=== PATIENT | male | born 1935 | race Caucasian/White ===

== ENCOUNTER → 2019-03-31 08:46 | Outpatient (BNVA) | payer OTHER, SELFPAY | PROVIDERS: PCP General Practice; Referring Provider General Practice; Visit Provider Orthopaedic Surgery | DX: Z47.1 Aftercare following joint replacement surgery (principal); Z96.641 Presence of right artificial hip joint | CPT/HCPCS: 99212; 99213 ==

== ENCOUNTER 2019-05-26 14:09 | Outpatient (CLI) | payer OTHER, SELFPAY ==
--- NOTE | 2019-05-26 10:54 | DI.RAD_ITS ---
SYMPTOMS/DIAGNOSIS: LEFT HIP PAIN LEFT HIP AND PELVIS: Two views. Comparison is 03/31/18. There are mild degenerative changes of the left hip. There is again seen a right total hip replacement, which appears stable. The bones appear intact. Extensive vascular calcifications are present.
== END 2019-05-26 14:29 ==
PROVIDERS: Referring Provider General Practice; Visit Provider Orthopaedic Surgery
DX: M25.552 Pain in left hip (principal); M16.12 Unilateral primary osteoarthritis, left hip; Z96.641 Presence of right artificial hip joint; M70.62 Trochanteric bursitis, left hip
CPT/HCPCS: 99213; 73502

== ENCOUNTER 2020-08-14 19:09 | Outpatient (REF) | payer OTHER, SELFPAY ==
[2020-08-14 19:10] LABS: CREATININE 0.92 mg/dL (0.70-1.30)
== END 2020-08-14 19:29 ==
LOC: NCHCN 19:09
PROVIDERS: PCP Physician Assistant; Visit Provider Family Medicine
DX: I10 Essential (primary) hypertension (principal)
CPT/HCPCS: 82565

== ENCOUNTER 2022-01-15 18:35 | Outpatient (REF) | payer OTHER, SELFPAY ==
[2022-01-15 19:51] LABS: CREATININE 0.8 mg/dL (0.70-1.30)
== END 2022-01-15 18:36 | disposition home or self-care (01) ==
LOC: NCHCN 18:35
PROVIDERS: PCP Physician Assistant; Visit Provider Family Medicine
DX: U07.1 COVID-19 (principal)
CPT/HCPCS: 82565

== ENCOUNTER 2022-03-26 13:10 | Outpatient (REF) | payer MEDICARE, SELFPAY ==
[2022-03-26 15:45] LABS: Anion Gap 7.9 mmol/L (3-11); BUN 15 mg/dL (7-18); CO2 26.1 mmol/L (21.0-32.0); CREATININE 0.9 mg/dL (0.70-1.30); Calcium 8.8 mg/dL (8.5-10.1); Chloride 107 mmol/L (98-107); Glucose 108 mg/dL (74-106); Potassium 4.2 mmol/L (3.5-5.1); Sodium 141 mmol/L (136-145)
== END 2022-03-26 13:11 | disposition home or self-care (01) ==
LOC: NCHCN 13:10
PROVIDERS: PCP Physician Assistant; Visit Provider Family Medicine
DX: I10 Essential (primary) hypertension (principal)
CPT/HCPCS: 80048

== ENCOUNTER 2022-10-13 19:09 | Outpatient (REF) | payer MEDICARE, SELFPAY ==
[2022-10-13 19:30] LABS: Abs Immature Grans 0.04 10^3/uL (0.0-0.06); Absolute Eosinophil Count 0.09 10^3/uL (0.0-0.7); Absolute Lymphocyte Count 1.35 10^3/uL (1.2-3.4); Absolute Monocyte Count 0.83 10^3/uL (0.1-0.8); Absolute Neutrophil Count 7.82 10^3/uL (1.2-6.7); Eosinophils % 0.9; HCT 42.5 % (40.0-50.0); HGB 14.3 g/dL (13.5-17.5); Immature Grans % 0.4; Lymphocytes % 13.2; MCH 30.6 pg (27.0-33.0); MCHC 33.6 % (32.0-36.0); MCV 91 fL (80-95); MPV 12.1 fL (8.0-11.0); Monocytes % 8.1; Neutrophils % 76.4; Platelet Count 254 10^3/uL (130-400); RBC 4.68 10^6/uL (4.36-5.78); RDW 14.2 % (11.8-14.1); RDW-SD 47.2 fL; WBC 10.23 10^3/uL (4.4-10.8)
[2022-10-13 19:45] LABS: Hemoglobin A1C 5.5 % (<5.7)
[2022-10-13 19:55] LABS: ALT 18 U/L (16-63); AST 16 U/L (15-37); Albumin 3.8 g/dL (3.4-5.0); Alkaline Phosphatase 76 U/L (46-116); Anion Gap 8.3 mmol/L (3-11); BUN 18 mg/dL (7-18); Bilirubin, Total 0.5 mg/dL (0.2-1.0); CO2 27.7 mmol/L (21.0-32.0); Calcium 9.6 mg/dL (8.5-10.1); Chloride 105 mmol/L (98-107); Estimated GFR 73.76 (mL/min/1.73m2); Glucose 108 mg/dL (74-106); Potassium 4.5 mmol/L (3.5-5.1); Sodium 141 mmol/L (136-145); TSH (W/Ref FT4) 1.79 uIU/mL (0.36-3.74)
== END 2022-10-13 19:10 | disposition home or self-care (01) ==
LOC: NCHCN 19:09
PROVIDERS: PCP Physician Assistant; Visit Provider Family Medicine
DX: R63.4 Abnormal weight loss (principal)
CPT/HCPCS: 80053; 83036; 84443; 85025

== ENCOUNTER → 2022-10-14 12:22 | Outpatient (CLI) | payer MEDICARE, SELFPAY ==
--- NOTE | 2022-10-14 11:33 | DI.RAD_ITS ---
Exam(s) XR LUMBAR SPINE COMPLETE EXAM: XR LUMBAR SPINE COMPLETE CLINICAL HISTORY: LOW BACK PAIN M54.50. TECHNIQUE: 2D digital imaging was performed of the lumbar spine. Five images were obtained. AP, la teral, right oblique, left oblique and L5-S1 spot views were obtained. COMPARISON: No exams were available for comparison FINDINGS: BONES: No fracture or destructive lesion. Endplate osteophytes are seen throughout the lumbar spine. No facet hypertrophy identified. Part of a right total hip replacement are noted. DISKS: There is disc space narrowing at L1-L2 through L3-L4. Vacuum discs are seen at multiple level s of the lumbar spine. ALIGNMENT: There is a mild right convex thoracolumbar scoliosis. No spondylolysis or spondylolisthes is. SOFT TISSUE: Atherosclerosis is present. IMPRESSION: Moderate lumbar spondylosis. DATA REPOSITORY: RADIATION DOSE DELIVERED:
== END ==
PROVIDERS: PCP Physician Assistant; Visit Provider Family Medicine
DX: M47.816 Spondylosis without myelopathy or radiculopathy, lumbar region (principal)
CPT/HCPCS: 72110

== ENCOUNTER 2023-03-05 17:21 | Outpatient (REF) | payer MEDICARE, SELFPAY ==
[2023-03-05 18:39] LABS: Bilirubin Negative (Negative); Blood Negative (Negative); Clarity Clear (Clear); Glucose Negative (Negative); Ketones Negative (Negative); Leukocyte Esterase Negative (Negative); Nitrite Negative (Negative); Specific Gravity 1.015 (1.005-1.025); Urobilinogen 0.2 mg/dL (Up to 0.2); pH 6.5 (5-8)
[2023-03-05 20:10] LABS: ALT 21 U/L (16-63); AST 15 U/L (15-37); Albumin 3.6 g/dL (3.4-5.0); Alkaline Phosphatase 81 U/L (46-116); Anion Gap 9.7 mmol/L (3-11); BUN 11 mg/dL (7-18); Bilirubin, Total 0.4 mg/dL (0.2-1.0); CO2 26.3 mmol/L (21.0-32.0); Calcium 9.1 mg/dL (8.5-10.1); Chloride 106 mmol/L (98-107); Estimated GFR 73.76 (mL/min/1.73m2); Glucose 103 mg/dL (74-106); Potassium 4.3 mmol/L (3.5-5.1); Sodium 142 mmol/L (136-145); TSH (W/Ref FT4) 1.73 uIU/mL (0.36-3.74)
== END 2023-03-05 17:22 | disposition home or self-care (01) ==
LOC: NCHCN 17:21
PROVIDERS: PCP Physician Assistant; Visit Provider Family Medicine
DX: I10 Essential (primary) hypertension (principal)
CPT/HCPCS: 80053; 81003; 84443

== ENCOUNTER → 2023-10-01 13:16 | Outpatient (CLI) | payer MEDICARE, SELFPAY ==
--- NOTE | 2023-10-01 | DI.RAD_ITS ---
Exam(s) XR HIP LT COMPLETE AP PELVIS EXAM: XR HIP LT COMPLETE AP PELVIS CLINICAL HISTORY: left hip pain M25.552. TECHNIQUE: 2D digital imaging was performed. Two views. COMPARISON: CR XR hip LT complete AP pelvis from 05/26/2019 FINDINGS: BONES: No acute fracture is present. No bony destructive lesion is seen. Severe degenerative change s noted in the lower lumbar spine. JOINTS: No dislocation present. No change in right hip prosthesis. Left hip joint space is maintai amarilis. There is mild I acetabular spurring. SI joints and pubic symphysis are unremarkable. SOFT TISSUE: Vascular calcifications. IMPRESSION: Mild degenerative changes of the left hip. No change in right hip prosthesis. DATA REPOSITORY: RADIATION DOSE DELIVERED:
== END ==
PROVIDERS: PCP Physician Assistant; Visit Provider Family Medicine
DX: M16.12 Unilateral primary osteoarthritis, left hip (principal); Z96.641 Presence of right artificial hip joint
CPT/HCPCS: 73502

== ENCOUNTER → 2023-11-26 11:16 | Outpatient (BNVA) | payer MEDICARE, SELFPAY | PROVIDERS: PCP Family Medicine; Referring Provider Family Medicine | DX: M16.12 Unilateral primary osteoarthritis, left hip (principal) | CPT/HCPCS: 20611; 99203; J1040 ==

== ENCOUNTER 2024-01-19 10:41 | Emergency (ER) | payer MEDICARE, SELFPAY ==
[2024-01-19] VITALS (76 sets, daily range): BP systolic 76–188; BP diastolic 24–153; PULSE 50–97; RESP 18; TEMP 35.4–36.4; O2SAT 87–100
--- NOTE | 2024-01-19 10:15 | DI.RAD_ITS ---
Exam(s) XR PORTABLE CHEST AP EXAM: XR PORTABLE CHEST AP CLINICAL HISTORY: cardiac arrest, ?pneumothorax TECHNIQUE: 2D digital imaging was performed of the chest. One image was obtained. An AP view was ob tained. COMPARISON: No exams were available for comparison FINDINGS: MEDIASTINUM: Normal. HEART: Normal. PULMONARY VASCULATURE: Normal. There is a tortuous thoracic aorta. LUNGS: There are bilateral ground-glass opacities present. PLEURAL SPACE: No pleural effusion or pneumothorax. The patient's known tiny left apical pneumothorax is not visualized on this examination. BONE:Within normal limits for the patient's age. The patient's known anterior rib fractures are not w ell visualized on this examination. OTHER FINDINGS:Normal. IMPRESSION: 1. Bilateral diffuse ground-glass opacities. Differential considerations include pneumonia, contusio ns, hemorrhage or edema. 2. Please refer to the patient's CT scan of the chest, abdomen and pelvis for complete details. DATA REPOSITORY: RADIATION DOSE DELIVERED:
--- NOTE | 2024-01-19 10:30 | DI.CT_ITS ---
Exam(s) CT HEAD WO EXAM: CT HEAD WO CLINICAL HISTORY: post cardiac arrest, abrasion to superior occipita. TECHNIQUE: Imaging Protocol: Axial computed tomography images with coronal and sagittal reformatted images were created and reviewed COMPARISON: CT HEAD AND CSPINE W/O CONTRAST from 02/24/2014 FINDINGS: There is patient motion artifact. Ventricles and Extra axial spaces: Normal in size and morphology for the patient's age. Hemorrhage: None. Cerebral parenchyma: There are areas of decreased attenuation in the white matter consistent with sma ll vessel ischemic disease. There is no mass effect or effacement of the sulci. There are subtle ar eas of decreased attenuation in the high right posterior parietal lobe which may represent old infarc t. There is no effacement of the sulci. Midline shift: None. Brainstem/Cerebellum: Normal. Calvarium: Normal. Visualized Paranasal sinuses/Mastoids: Clear. Soft Tissues: Unremarkable. IMPRESSION: No acute intracranial process. RADIATION DOSE DELIVERED: Total DLP DATA REPOSITORY: All CT scans at this facility are submitted to the National Radiology Data Registry (NRDR) Dose Index Registry (DIR) with the [employer] (ACR). RADIATION OPTIMIZATION: All CT scans at this facility use at least one of these dose optimization te chniques: automated exposure control; mA and/or kV adjustment per patient size (includes targeted exa ms where dose is matched to clinical indication); or iterative reconstruction.
--- NOTE | 2024-01-19 10:30 | DI.CT_ITS ---
Exam(s) CT THORAX ABD/PEL CTA EXAM: CT THORAX ABD/PEL CTA CLINICAL HISTORY: post cardiac arrest, wide mediastinum on cxr. TECHNIQUE: Imaging Protocol: Axial CT angiography was performed with multi-slice acquisition and m ulti-planar and/or 3D reconstructions. CONTRAST MATERIAL: Intravenous: Omnipaque 350 contrast volume:100 mL Oral: No COMPARISON: CT HEAD AND CSPINE W/O CONTRAST from 02/24/2014 FINDINGS: The examination is limited due to patient motion artifact. CHEST: Tracheobronchial tree: Patent where visualized. Pulmonary parenchyma: There are multifocal bilateral ground-glass opacities. No architectural distor tion. Pulmonary Arteries: No evidence of filling defect to suggest pulmonary emboli. Mediastinum and Elissa: No dominant adenopathy or fluid collection. The esophagus is unremarkable. The re is a small hiatal hernia. Visualized thyroid: There is a 9 mm left thyroid nodule. No follow-up is recommended. Pleura: The looks to be a small right anterior pneumothorax. (Series 6, image 366). No pleural effu augustine. No left pneumothorax. Heart: Cardiomegaly. Coronary artery calcification and/or stents. No pericardial effusion. Aorta: Thoracic aorta non-dilated. There is motion artifact seen at the base of the ascending thoraci c aorta. There is no evidence of dissection. Mild atherosclerosis of the thoracic aorta is noted. Soft Tissues: Unremarkable. Bones: Within normal limits for the patient's age.There are minimally displaced fractures involving t he anterior aspect of the right 3rd through 6th ribs. There are nondisplaced fractures of the anteri or aspects of the right 7th through 9th ribs. There are also mildly displaced left 3rd through 8th r ib fractures anteriorly. The fractures occur near the costochondral junctions. ABDOMEN AND PELVIS: Abdomen: Celiac axis/mesenteric arteries: No evidence of occlusion or significant stenosis. Renal Arteries: No evidence of occlusion or significant stenosis. Mild atherosclerotic calcification in the proximal right renal artery causing mild stenosis. Aorta: No evidence of occlusion or significant stenosis. No aneurysm or dissection. Atheroscleroti c calcification is present. Pelvis: Iliac Arteries: No evidence of occlusion or significant stenosis. Atherosclerotic calcification is present. No significant stenosis. Common Femoral Arteries: No evidence of occlusion or significant stenosis. Atherosclerotic calcific ation is present no significant stenosis. ABDOMEN: Liver: Normal density. No measurable mass. Gallbladder and Biliary Tract: No radiodense calculus or dilation. Pancreas: Normal density, no abnormal calcifications or inflammatory process. Spleen: Normal. Adrenals: No masses seen. Kidneys: Normal size, contour and axis. No radiodense stones or obstructive uropathy. No masses seen. Bowel: There is diverticulosis of the colon without evidence of acute diverticulitis. There is no ev idence of bowel obstruction or bowel wall thickening. There is no evidence of pneumatosis. No evide nce of appendicitis. Peritoneal Cavity: There is a soft tissue mass in the central abdomen which lies inferior to the panc reas but may be contiguous with the pancreas body. It measures 2.2 AP by 9.1 transverse by 7.5 crani ocaudad cm. No free air. Lymph Nodes: Within normal limits. Bones: Within normal limits for the patient's age. The patient has a right total hip replacement. Soft Tissues: There is a fat containing left inguinal hernia. PELVIS: Bladder: Symmetric distention, no gross wall thickening. Reproductive Organs: Prostate gland is mildly enlarged. Lymph Nodes: Within normal limits. Bones: Within normal limits for the patient's age. IMPRESSION: 1. No evidence of aortic dissection or aneurysm. 2. Multiple bilateral ground-glass opacities in the lungs. Differential considerations include contu sions, pulmonary edema, pulmonary hemorrhage, pneumonia. Please correlate clinically. 3. Multiple anterior bilateral rib fractures. No evidence of a flail chest. 4. Tiny right anterior pneumothorax. 5. 2.2 x 9.1 x 7.5 cm mass in the mid abdomen. It may be contiguous with the pancreatic body. Diffe rential considerations include pancreatic neoplasm, adenopathy/lymphoma, metastatic disease or possib le hematoma. 6. No acute abdomen or pelvic process. RADIATION DOSE DELIVERED: Total DLP DATA REPOSITORY: All CT scans at this facility are submitted to the National Radiology Data Registry (NRDR) Dose Index Registry (DIR) with the [employer] (ACR). RADIATION OPTIMIZATION: All CT scans at this facility use at least one of these dose optimization te chniques: automated exposure control; mA and/or kV adjustment per patient size (includes targeted exa ms where dose is matched to clinical indication); or iterative reconstruction.
--- NOTE | 2024-01-19 10:30 | RT.EKG_ITS ---
APPROVED REPORT Exam: Resting ECG Reason for Exam: cardiac arrest in field Patient Location: E HR:90 bpm ECG Measurements Heart Rate 90 AXIS NC 264 P 78 QRSd 108 QRS -24 QT 397 T 21 QTc 484 Conclusion Sinus rhythm...normal P axis, V-rate 60- 99 Ventricular premature complex...V complex w/ short R-R interval Prolonged NC interval...NC >220, V-rate 50- 90 Probable LVH with secondary repol abnrm...multiple LVH criteria Sinus rhythm, consider biphasic T waves lead III ST depressions V4 V5 V6, PVC
[2024-01-19 10:37] LABS: BE (Venous) -9 mmol/L (-2-3); HCO3 (Venous) 18 mmol/L (23-28); O2 Sat (Venous) 92 %; TCO2 (Venous) 16 mmol/L (24-29); pCO2 (Venous) 39 mmHg (41-51); pH (Venous) 7.27 (7.31-7.41); pO2 (Venous) 70 mmHg
[2024-01-19 10:39] LABS: Abs Immature Grans 0.28 10^3/uL (0.0-0.06); Absolute Basophil Count 0.14 10^3/uL (0.0-0.2); Absolute Eosinophil Count 0.17 10^3/uL (0.0-0.7); Absolute Monocyte Count 0.84 10^3/uL (0.1-0.8); Basophils % 1.3; Eosinophils % 1.6; HCT 44.2 % (40.0-50.0); HGB 14.6 g/dL (13.5-17.5); Immature Grans % 2.6; Lymphocytes % 26.8; MCH 29.9 pg (27.0-33.0); MCV 91 fL (80-95); MPV 12.1 fL (8.0-11.0); Monocytes % 7.8; Neutrophils % 59.9; Platelet Count 240 10^3/uL (130-400); RBC 4.88 10^6/uL (4.36-5.78); RDW 14.4 % (11.8-14.1); RDW-SD 47.8 fL; WBC 10.83 10^3/uL (4.4-10.8)
[2024-01-19 10:40] LABS: Absolute Neutrophil Count 6.49 10^3/uL (1.2-6.7)
--- NOTE | 2024-01-19 10:41 | ED.GENADUL_ITS ---
Discharge Plan Disposition Patient Disposition: Transfer-Acute Inpatient Care Specific Acute Inpt Facility: [facility] Condition: Stable Discharge Details Chief Complaint: AMS/LOC Clinical Impression: Cardiac arrest, Non-ST elevation SD (NSTEMI) Primary Care Provider: Angel Wheeler ED Provider: Hank Cordoba Home Meds and New Rx's Prescriptions: No Action lisinopril 20 mg tablet 20 mg PO DAILY HPI General Date/Time Provider Initiated Documentation: 01/19/24 10:44 . HPI Narrative: 88-year-old male history of hypertension presents after witnessed cardiac arrest, was standing at the [place], became pale and collapsed was noted to be pulseless by bystanders, had to agonal breaths then stopped breathing, bystander CPR started immediately AICD applied to chest patient received 3 shocks in total approximately downtime 8 to 10 minutes with return of spontaneous circulation, patient alert to self however not to time or place or situation, given aspirin Zofran. And fluids and route by EMS. Complaining of anterior chest discomfort. Right bundle branch block noted on EMS twelve-lead Related Data Home Medications Medication Instructions Recorded Confirmed lisinopril 20 mg tablet 20 mg PO DAILY 09/18/23 01/19/24 Allergies Allergy/AdvReac Type Severity Reaction Status Date / Time No Known Allergies Allergy Unverified 01/19/24 10:36 General Stated Complaint: AMS/LOC GRICELDA: 2 Review of Systems Narrative: Review of Systems Constitutional: negative Eyes: negative ENT: negative Cardiovascular: Chest pain Respiratory: negative Gastrointestinal: negative : negative Musculoskeletal: negative Skin: negative Neurologic: negative Psych: negative Exam Narrative Exam Narrative: Physical Examination General: alert, awake, cooperative, appears mildly uncomfortable HEENT: normocephalic, atraumatic; PERRL, EOM intact, conjunctiva normal; no nasal discharge; moist mucous membranes, oral and pharyngeal mucosa normal, tolerating secretions Neck: supple, trachea midline; full ROM Chest: normal to inspection; no palpable crepitus Respiratory: normal respiratory effort, speaking in full sentences, diminished right anterior lung james Cardiac: regular rate, regular rhythm, S1S2 intact, no murmurs rubs or gallops GI: abdomen soft, non-tender, non-distended; no palpable mass or hepatosplenomegaly Skin: Superficial abrasion and contusion to superior occipital scalp Neuro: Alert to self however not alert to time or place or situation, 5-5 strength upper and lower extremities bilaterally, sensation intact, no ataxia Extremities: No deformities to limbs, pelvis stable Course Vital Signs Vital signs: Vital Signs Temperature 36.4 C L 01/19/24 10:30 Pulse 81 01/19/24 10:30 Respiratory Rate 18 01/19/24 10:30 Blood Pressure 134/92 H 01/19/24 10:30 Pulse Oximetry 90 L 01/19/24 10:30 Temperature 36.4 C L 01/19/24 10:30 Pulse 81 01/19/24 10:30 Respiratory Rate 18 01/19/24 10:30 Blood Pressure 134/92 H 01/19/24 10:30 Pulse Oximetry 90 L 01/19/24 10:30 Oxygen Delivery Method Nasal Cannula 01/19/24 10:30 Oxygen Flow Rate 6 01/19/24 10:30 Lab/Test Results Lab/Test Results: Laboratory Tests Range/Units 01/19/24 10:15 WBC (4.4-10.8) 10^3/uL 10.83 H RBC (4.36-5.78) 10^6/uL 4.88 Hgb (13.5-17.5) g/dL 14.6 Hct (40.0-50.0) % 44.2 MCV (80-95) fL 91 MCH (27.0-33.0) pg 29.9 MCHC (32.0-36.0) % 33.0 RDW (11.8-14.1) % 14.4 H Plt Count (130-400) 10^3/uL 240 MPV (8.0-11.0) fL 12.1 H Immature Gran % 2.6 Neutrophils % 59.9 Lymphocytes % 26.8 Monocytes % 7.8 Eosinophils % 1.6 Basophils % 1.3 Nucleated RBC % (0.0-0.3) % 0.0 Absolute Neutrophils (1.2-6.7) 10^3/uL 6.49 Absolute Lymphocytes (1.2-3.4) 10^3/uL 2.90 Absolute Monocytes (0.1-0.8) 10^3/uL 0.84 H Absolute Eosinophils (0.0-0.7) 10^3/uL 0.17 Absolute Basophils (0.0-0.2) 10^3/uL 0.14 VBG pH (7.31-7.41) 7.27 L VBG pCO2 (41-51) mmHg 39 L VBG pO2 mmHg 70 VBG HCO3 (23-28) mmol/L 18 L VBG Total CO2 (24-29) mmol/L 16 L VBG O2 Saturation % 92 VBG Base Excess (-2-3) mmol/L -9 L Procedures Central Line Placement Right Femoral: Time Out Performed: Yes Patient Placed on Monitor/Pulse Ox: Yes MD Prep: mask, gown and gloves Central Line Prep: Chlorhexidine scrub Local Anesthetic: Lidocaine 1% Amount of anesthesia used (mL): 3 Ultrasound Used for Placement: Yes Central Line Lumen Inserted: triple Additional Comments: Due to intravascular depletion and collapsing vein passage of central line unsuccessful, pressure applied to groin no signs of hematoma; second attempt was attempted on left femoral also unsuccessful due to collapsing vein. Medical Decision Making 88-year-old male brought in by EMS postcardiac arrest, witnessed collapse at [facility] [place], immediate bystander CPR and AICD applied total downtime 8 to 10 minutes, 3 shocks administered patient with return of spontaneous circulation, normal sinus rhythm on monitor, patient awake alert to self however not to time or situation, given fentanyl aspirin and Zofran and route as well as some fluid, airway intact tongue secretions, slightly diminished breath sounds anterior right lung field, normotensive normal sinus rhythm warm well-perfused strong radial pulse, no external signs of limb or abdominal trauma, no crepitus to chest, patient does have superficial contusion/abrasion to superior occipital scalp from fall, fingerstick 200 in the field, EMS twelve-lead showing right bundle branch block, no peripheral edema; bedside portable x-ray showing likely early pulmonary edema/pulmonary contusion consider from resuscitative effort evidence of superior rib fracture right side, no evidence of pneumothorax, however patient does appear to have a widened mediastinum on x-ray, sent for stat CT head CTA chest abdomen pelvis; consider ACS leading to malignant arrhythmia versus V. tach V-fib versus electrolyte derangement versus aortic dissection versus PE versus hypovolemia versus viral myocarditis low suspicion for CVA or intracranial hemorrhage as primary cause of arrest. Holding fluids given normotension and euvolemic on examination, as well as sign of interstitial findings on bedside x-ray as well as relative hypoxia to the low 90s on room air. Patient on 5 to 6 L nasal cannula. Will closely reassess mental status, patient on monitor and pads. Will collect more collateral information from who is arriving shortly. High likelihood for transfer to tertiary care center for further cardiac evaluation 11: 11 sinus rhythm left axis, biphasic ST segment in V3, ST segment depressions V4 V5 V6 concerning for anterolateral ischemia. Elevated troponin in the setting of cardiac arrest abnormal EKG concerning for ACS resulting in malignant arrhythmia. Stat consultation with [facility] cardiology/ICU team in progress. Patient maintaining airway tolerate secretions maintaining blood pressure. Still on supplemental O2 multiple rib fractures on chest CT consistent with chest compressions, pulmonary contusion and small right sided pneumothorax. 12: 46 intermittent episodes of hypotension and bradycardia, hypotension as low as 70 systolic with maps below 65, peripheral norepinephrine started at 5 mcg/min with improvement of blood pressure to the 130s systolic, patient appears to be likely intravascularly depleted as internal jugular is completely collapsed, attempts at bilateral femoral vein central line access failed, will allow pressors to take effect and will reassess for central vascular access. 13: 46 uptrending troponin now to level of 700, touch base with cardiology at [facility], patient has been accepted for admission, accepting physician Dr. Rodriguez. Will attempt central access again now that fluid boluses has completed 14: 12 patient still appears intravascular depleted as bilateral IJ's are completely collapsed despite positioning/Trendelenburg, medic transport team has arrived while assessing for central access, received call from cardiology team the patient will be taken directly to [facility], requesting amnio bolus and drip. Patient loaded with heparin Plavix and atorvastatin. Currently on heparin drip. I do not wish to delay time to [facility] any further, peripheral IVs are working properly no signs of infiltration Quality:SDOH Health Related Social Needs: No Data to Display Critical Care Time Critical Care Time Critical Care Time: Yes Total Critical Care Time: 30 Attestation: Critical care transfer the bedside assessing patient interpreting labs during imaging caring for patient postcardiac arrest with NSTEMI requiring central line attempt as well as pressors amiodarone and [facility] admission at [facility]. PFSH All Active Problems (Updated 03/31/19 @ 14:25 by Katrina Bueno) Non-ST elevation SD (NSTEMI) (Acute) Cardiac arrest (Acute) Osteoarthritis of left hip (Acute) Bilateral sensorineural hearing loss (Acute) Excessive cerumen in right ear canal (Acute) Greater trochanteric bursitis of left hip (Acute) Status post total replacement of right hip (Chronic) DOS: 2010 Dr. Wilkinson Medical History (Updated 01/19/24 @ 14:17 by Hank Cordoba MD) Hypertension Spondylosis Skin lesion Nocturia Cerumen impaction Surgical History (Updated 03/31/19 @ 14:25 by Katrina Bueno) Total replacement of hip right Social History Smoking/Tobacco Use Status: Never Smoking risk assessment performed?: Yes Alcohol Intake: current Alcohol Intake frequency: holidays/special occasions only Drug use: Never Substance use type: does not use Housing: house Do you feel safe at home: Yes Do you feel safe in your relationship?: Yes
[2024-01-19 10:51] LABS: INR 1.1 (0.9-1.1); PTT Activated 25.8 sec (23.6-32.8); Prothrombin Time 11.1 sec (9.1-11.1)
[2024-01-19] MEDS: Omnipaque 350 MG/ML 500 ML BTL-Imaging package IJ (11:00)
[2024-01-19 11:01] LABS: ALT 148 U/L (16-63); AST 197 U/L (15-37); Albumin 3.3 g/dL (3.4-5.0); Alkaline Phosphatase 102 U/L (46-116); Anion Gap 17.4 mmol/L (3-11); BUN 14 mg/dL (7-18); Bilirubin, Total 0.7 mg/dL (0.2-1.0); CO2 18.6 mmol/L (21.0-32.0); CREATININE 1.3 mg/dL (0.70-1.30); Calcium 9.1 mg/dL (8.5-10.1); Chloride 104 mmol/L (98-107); Glucose 181 mg/dL (74-106); NT-proBNP 1181 pg/mL (<300); Potassium 3.9 mmol/L (3.5-5.1); Sodium 140 mmol/L (136-145); Total Protein 7.1 g/dL (6.4-8.2); Troponin I 134 ng/L (< or =60)
[2024-01-19] MEDS: Ondansetron 4 MG/2 ML VIAL (11:03)
--- NOTE | 2024-01-19 11:30 | DI.RAD_ITS ---
Exam(s) XR PORTABLE CHEST AP EXAM: XR PORTABLE CHEST AP CLINICAL HISTORY: repeat, pneumo on right, drop in BP TECHNIQUE: 2D digital imaging was performed of the chest. One image was obtained. An AP view was ob tained. COMPARISON: CR XR PORTABLE CHEST AP from 01/19/2024 FINDINGS: MEDIASTINUM: Normal. HEART: Normal. PULMONARY VASCULATURE: Normal. LUNGS: Persistent bilateral ground-glass opacities which are unchanged. PLEURAL SPACE: No pleural effusion or pneumothorax. No pneumothorax is seen. BONE:Within normal limits for the patient's age. OTHER FINDINGS:Normal. IMPRESSION: 1. The patient's known tiny right pneumothorax can not be visualized on this examination. 2. Persistent bilateral pulmonary infiltrates. DATA REPOSITORY: RADIATION DOSE DELIVERED:
[2024-01-19] MEDS: Norepinephrine in D5W 8 MG/250 ML BAG 13.1 MG IV (11:50)
--- NOTE | 2024-01-19 12:30 | RT.EKG_ITS ---
APPROVED REPORT Exam: Resting ECG Reason for Exam: chest pain Patient Location: E HR:54 bpm ECG Measurements Heart Rate 54 AXIS AK 188 P 34 QRSd 105 QRS -15 QT 425 T 53 QTc 402 Conclusion Sinus bradycardia...rate< [address] depression, anterolateral leads...ST <-0.07mV, I aVL V2-V6 Sinus rhythm normal axis, ST depression V3 V4 V5 V6
[2024-01-19 13:01] LABS: Bilirubin Negative (Negative); Blood Trace-lysed (Negative); Clarity Clear (Clear); Glucose Negative (Negative); Ketones Negative (Negative); Leukocyte Esterase Trace (Negative); Nitrite Negative (Negative); Urobilinogen 0.2 mg/dL (Up to 0.2)
[2024-01-19 13:08] LABS: Bacteria Few HPF (Negative); C & S Indicated? Yes; Casts Negative LPF (Negative); Crystals Negative HPF (Negative); Epithelial Cells Rare HPF (Negative); Mucus Negative (Negative)
[2024-01-19 13:17] LABS: Troponin I 709 ng/L (< or =60)
[2024-01-19] MEDS: Ondansetron 4 MG/2 ML VIAL IVP (13:58)
[2024-01-19] MEDS: Clopidogrel 300 MG TAB 600 MG PO (13:58)
[2024-01-19] MEDS: Atorvastatin 40 MG TAB 80 MG PO (13:58)
[2024-01-19] MEDS: Heparin in 0.45% NaCl 25,000 UNIT/250 ML BAG 7.15 UNIT IV (14:00)
[2024-01-19] MEDS: Amiodarone in Dextrose 360 MG/200 ML BAG 33.333 MG IV (14:06)
== END 2024-01-19 14:33 | disposition short-term general hospital (02) ==
PROVIDERS: Physician Assistant; Emergency Provider Emergency Medicine; PCP Family Medicine
DX: I46.9 Cardiac arrest, cause unspecified (principal); I21.4 Non-ST elevation (NSTEMI) myocardial infarction; I45.19 Other right bundle-branch block; J93.83 Other pneumothorax; S22.43XA Multiple fractures of ribs, bilateral, initial encounter for closed fracture; I10 Essential (primary) hypertension; X58.XXXA Exposure to other specified factors, initial encounter
CPT/HCPCS: 36415; 36556; 71275; 80053; 82805; 93005; 96374; 96375; 99291; 70450; 71045; 74174; 81003; 81015; 83735; 83880; 84484; 85025; 85610; 85730; 87086; 93010; J0283; J1644; J2405